=== PATIENT | female | born 1960 | race Hispanic/Latino ===

== ENCOUNTER 2016-08-13 06:46 | Day surgery (SDC) | payer MEDICARE ==
[~2016-08-13 06:46] MED LIST: NACL 0.9% 1000 ML 1,000 ML IV SCH
[2016-08-13 07:44] LABS: Basophils % (Auto) 0.4 % (0.0-1.8); Eosinophils % (Auto) 1.8 % (0.0-4.3); Hematocrit 34.8 % (30.3-42.9); Hemoglobin 11.5 gm/dl (10.1-14.3); Mean Corpuscular HGB Conc 33 % (30-34); Mean Corpuscular Hemoglobin 31 pg (28-32); Mean Corpuscular Volume 95 fl (79-97); Platelet Count 161 K/mm3 (140-440); Red Blood Count 3.68 M/mm3 (3.65-5.03); Red Cell Distribution Width 15.4 % (13.2-15.2); White Blood Count 4.2 K/mm3 (4.5-11.0)
[2016-08-13 07:54] LABS: BUN/Creatinine Ratio 4.28; Calcium 9.3 mg/dL (8.4-10.2); Chloride 92.6 mmol/L (98-107); INR 1.05 (0.87-1.13); Potassium 5.1 mmol/L (3.6-5.0)
[2016-08-13 07:55] LABS: Partial Thromboplastin Time 32.2 Sec. (24.2-36.6)
[2016-08-13] MEDS ORDERED: HEPARIN/NS 5000 UNIT/500ML(CATH LAB) 1,000 ML IR ONE (08:16)
[2016-08-13] MEDS ORDERED: XYLOCAINE 2% INFILTRATI ONE (08:16)
[2016-08-13] MEDS ORDERED: HEPARIN 10,000 UNITS/10 ML ONE (08:16)
[2016-08-13] MEDS ORDERED: NACL 0.9% 250ML 0 ML ONE (08:17)
[2016-08-13] MEDS ORDERED: NACL 0.9% 500 ML 500 ML ONE (08:19)
[2016-08-13] MEDS ORDERED: VANCOMYCIN/NS 1 GM/250 ML 1 GM/250 ML BAG IV NR (09:00)
[2016-08-13] MEDS ORDERED: NACL 0.9% 500 ML 500 ML IV SCH (09:00)
[2016-08-13] MEDS ORDERED: HEPARIN/NS 5000 UNIT/500ML(CATH LAB) 500 ML IR ONE (09:05)
[2016-08-13] MEDS: VERSED ONE ×2 (09:08→09:20)
[2016-08-13] MEDS: SUBLIMAZE ONE ×3 (09:08→09:48)
[2016-08-13] MEDS ORDERED: NORCO 5/325 PO ONE (10:22)
--- NOTE | 2016-08-13 10:35 | Operative Report ---
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 Mild stenosis of the innominate vein stent Procedure: Patient in the supine position both groins were then prepped and draped using standard sterile technique. Repeat timeouts were performed and monitor sedation was initiated with angiolytics and narcotics. Access was obtained of the right common femoral vein using duplex identification and guidance and a standard venous cannulation was performed under real-time imaging. Guidewire was advanced into the vena cava and a 5 [place] introducer was placed. Guidewire was then advanced into the right atrium and a vertebral catheter was used and several attempts were made to orifice of the superior vena cava next to the previously placed AICD lead. Ultimately I placed a [place] destination sheath and a then MP guide catheter was used to successfully identify the orifice and advanced the advantage wire into the right subclavian vein. I ultimately manipulated the wire through the left and nominate stent and into the left central venous dialysis circuit contrast was injected showing a high-grade superior vena cava stenosis. The patient was heparinized. A 10 x 4 angioplasty balloon was advanced into the left innominate vein and the stent was angioplastied. The superior vena cava was also balloon angioplastied. Repeat contrast injections showed significant improvement in the caliber of the vein. At this point I then terminated procedure by removing all catheters and sheaths. Counter pressure in the groin was held for good hemostatic control. Patient was then returned the recovery area in stable condition having tolerated the procedure well.
--- NOTE | 2016-08-13 10:38 | Short Stay Summary ---
Short Stay Documentation Date of service: 08/13/16 Narrative H&P: Patient admitted to the [facility] for outpatient balloon angioplasty of a stenosis of the superior vena cava involving previously placed AICD leads due to development of superior vena cava syndrome. History and physical obtained from the office - History H&P: obtained from office - Allergies and Medications Current Medications: Allergies Penicillins Adverse Reaction (Verified 08/13/16 07:36) Itching,HIVES [place] Allergy (Intermediate, Uncoded 08/13/16 07:37) ITCHING, HIVES Home Medications Medication Instructions Recorded Confirmed Last Taken Type Azilsartan Medoxomil [Edarbi] 28 mg PO QDAY 08/13/16 08/13/16 08/13/16 05:00 History Carvedilol [Coreg] 12.5 mg PO 3XW 08/13/16 08/13/16 08/12/16 History Carvedilol [Coreg] 25 mg PO BID 08/13/16 08/13/16 08/13/16 05:00 History Cholecalciferol Vit D3 [Vitamin D3] 1,000 unit PO QDAY 08/13/16 08/13/16 History Cinacalcet HCl [Sensipar] 90 mg PO HS 08/13/16 08/13/16 08/12/16 History Esomeprazole Magnesium 40 mg PO BID 08/13/16 08/13/16 08/12/16 History [Esomeprazole Magnesium] LORazepam [LORazepam] 2 mg PO PRN 08/13/16 08/13/16 08/12/16 History Lanthanum Carbonate [Fosrenol] 1,000 mg PO TIDWM 08/13/16 08/13/16 08/12/16 History Levothyroxine Sodium [Synthroid] 75 mcg PO QAM 08/13/16 08/13/16 08/12/16 History NIFEdipine [NIFEdipine ER] 60 mg PO QDAY 08/13/16 08/13/16 08/13/16 05:00 History Pravastatin Sodium [Pravastatin] 40 mg PO QDAY 08/13/16 08/13/16 08/12/16 History Promethazine HCl [Promethazine HCl] 25 mg PO Q8H 08/13/16 08/13/16 08/12/16 History Kamille-Gianna Rx Tablet 1 tab PO QDAY 08/13/16 08/13/16 08/12/16 History Sevelamer Carbonate [Renvela] 5 tab PO TIDWM 08/13/16 08/13/16 08/12/16 History Vit C/Butchers Broom/Hesperidn 1 each PO QDAY 08/13/16 08/13/16 08/12/16 History [Vasoflex Forte Capsule] guaiFENesin [Mucinex] 600 mg PO BID 08/13/16 08/13/16 08/12/16 History Active Medications Vancomycin HCl (Vancomycin/Ns 1 Gm/250 Ml) 1 gm in 250 mls @ 167.007 mls/hr IV PREOP NR PRN Reason: Protocol Stop: 08/13/16 23:59 Last Admin: 08/13/16 08:29 Dose: 167.007 mls/hr Sodium Chloride (Nacl 0.9% 500 Ml) 500 mls @ 50 mls/hr IV DIRECT NORMA - Brief post op/procedure progress note Date of procedure: 08/13/16 Procedure: Pre-operative diagnosis: 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 Mild stenosis of the innominate vein stent Procedure: Patient in the supine position both groins were then prepped and draped using standard sterile technique. Repeat timeouts were performed and monitor sedation was initiated with angiolytics and narcotics. Access was obtained of the right common femoral vein using duplex identification and guidance and a standard venous cannulation was performed under real-time imaging. Guidewire was advanced into the vena cava and a 5 [place] introducer was placed. Guidewire was then advanced into the right atrium and a vertebral catheter was used and several attempts were made to orifice of the superior vena cava next to the previously placed AICD lead. Ultimately I placed a [place] destination sheath and a then MP guide catheter was used to successfully identify the orifice and advanced the advantage wire into the right subclavian vein. I ultimately manipulated the wire through the left and nominate stent and into the left central venous dialysis circuit contrast was injected showing a high-grade superior vena cava stenosis. The patient was heparinized. A 10 x 4 angioplasty balloon was advanced into the left innominate vein and the stent was angioplastied. The superior vena cava was also balloon angioplastied. Repeat contrast injections showed significant improvement in the caliber of the vein. At this point I then terminated procedure by removing all catheters and sheaths. Counter pressure in the groin was held for good hemostatic control. Patient was then returned the recovery area in stable condition having tolerated the procedure well. 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
[2016-08-13 12:17] VITALS: BP 124/54
--- NOTE | 2016-08-13 17:45 | Vascular Lab Report ---
MISCELLANEOUS VESSEL IDENTIFICATION: COMMENTS ON THE SCAN: The right common femoral vein was identified and under real-time ultrasound guidance was cannulated. IMPRESSION: Successful ultrasound guided vein cannulation.
== END 2016-08-13 12:43 | disposition home or self-care (01) ==
LOC: OPU 06:46
PROVIDERS: ATTEND Surgery Vascular Surgery
DX: I87.1 Compression of vein (principal); T82.590S Other mechanical complication of surgically created arteriovenous fistula, sequela; N18.6 End stage renal disease; Q61.3 Polycystic kidney, unspecified; K21.9 Gastro-esophageal reflux disease without esophagitis; Z99.2 Dependence on renal dialysis; Z72.89 Other problems related to lifestyle; Z98.51 Tubal ligation status; Z79.899 Other long term (current) drug therapy; Y83.2 Surgical operation with anastomosis, bypass or graft as the cause of abnormal reaction of the patient, or of later complication, without mention of misadventure at the time of the procedure
CPT/HCPCS: 36415; 37248; 76937; 80048; 85025; 85610; 85730; 96365; C1725; C1769; C1887; J1644; J2250; J3010; J7040; 36248; 36907; J3370; J7050; Q9967